=== PATIENT | female | born 1990 | race Caucasian/White ===

== ENCOUNTER 2016-07-03 10:22 | Emergency (ER) | payer OTHER ==
[~2016-07-03] VITALS: Ht 157.5 cm; Wt 45.3 kg
[~2016-07-03 10:22] MED LIST: FLEXERIL10 MG PO; MOTRIN800 MG PO; NAPROSYN375 MG PO; NOHOMEMEDS; ORTHO CYCLEN1 TABLET PO
[2016-07-03] MEDS ORDERED: NAPROSYN500 MG PO (13:10)
[2016-07-03] MEDS ORDERED: FLEXERIL10 MG PO (13:10)
[2016-07-03 13:58] VITALS: BP 132/88
== END 2016-07-03 13:59 | disposition home or self-care (01) ==
LOC: EME 10:22
DX: S00.83XA Contusion of other part of head, initial encounter (principal); Y04.8XXA Assault by other bodily force, initial encounter; F17.200 Nicotine dependence, unspecified, uncomplicated
CPT/HCPCS: 70110; 99281; 99283